=== PATIENT | male | born 1955 | race Two or more races ===

== ENCOUNTER 2022-12-08 20:28 | Emergency (ER) | payer MEDICAID ==
[~2022-12-08] VITALS: Ht 162.6 cm; Wt 77.0 kg
[2022-12-08] MEDS ORDERED: LOSA-381 PO (20:33)
[2022-12-08 20:34] VITALS: TEMP 98.7
[2022-12-08 22:27] LABS: BASOPHILS % (AUTO) 0.4 % (0.0-2.0); EOSINOPHILS % (AUTO) 1.1 % (1.0-6.0); HEMATOCRIT 52.4 % (41-53); HEMOGLOBIN 17.5 g/dL (13.5-17.5); LYMPHOCYTES # (AUTO) 1.8 K/uL (1.0-4.8); LYMPHOCYTES % (AUTO) 17.7 % (22.0-44.0); MEAN CORPUSCULAR HEMOGLOBIN 32.9 pg (26.0-34.0); MEAN CORPUSCULAR HGB CONC 33.5 G/dL (31.0-37.0); MEAN CORPUSCULAR VOLUME 98 fL (80-100); MONOCYTES # (AUTO) 0.8 K/uL (0.1-1.0); MONOCYTES % (AUTO) 7.5 % (2.0-9.0); NEUTROPHILS # (AUTO) 7.5 K/uL (1.8-7.7); NEUTROPHILS % (AUTO) 73.3 % (40.0-70.0); PLATELET COUNT (AUTO) 257 K/uL (150-450); RED BLOOD CELL COUNT(AUTO) 5.32 MIL/uL (4.50-5.90); RED CELL DISTRIBUTION WIDTH 13.4 % (11.5-14.5); WHITE BLOOD COUNT (AUTO) 10.2 K/uL (4.5-11.0)
[2022-12-08 22:35] LABS: ANION GAP 10 mmol/L (8-16); CALCIUM, TOTAL 9.4 mg/dL (8.8-10.5); CARBON DIOXIDE 28 mmol/L (22-29); CHLORIDE 97 mmol/L (98-107); CREATININE 1.05 mg/dL (0.60-1.30); GLOMERULAR FILTR. RATE CALC > 60 mL/min (>60); GLUCOSE,RANDOM 160 mg/dL (70-110); POTASSIUM 3.5 mmol/L (3.5-5.1); SODIUM SERUM 135 mmol/L (136-145); UREA NITROGEN, BLOOD 12 mg/dL (7-18)
[2022-12-08 22:42] LABS: ALANINE AMINOTRANSFERASE 37 U/L (12-78); ALBUMIN 3.5 g/dL (3.4-5.0); ALKALINE PHOSPHATASE 126 U/L (46-116); ASPARTATE AMINOTRANSFERASE 25 U/L (15-37); BILIRUBIN,TOTAL 0.2 mg/dL (0.1-1.0); LIPASE 45 U/L (16-77); TOTAL PROTEIN, SERUM 8.4 g/dL (6.4-8.2); TROPONIN I-HIGH SENSITIVITY 12 ng/L (<76)
[2022-12-08] MEDS ORDERED: POLY17PO PO (23:42)
[2022-12-08] MEDS ORDERED: NA P133E4 PR (23:43)
[2022-12-09] MEDS ORDERED: ACETAMINOPHEN 500 MG TABLET ONE (00:44)
[2022-12-09] MEDS ORDERED: ACETAMINOPHEN 500 MG TABLET PO ONE (00:45)
[2022-12-09 01:14] VITALS: BP 146/81; PULSE 98; RESP 22
== END 2022-12-09 00:21 | disposition home or self-care (01) ==
LOC: EMS 20:30
DX: K59.00 Constipation, unspecified (principal); I10 Essential (primary) hypertension; Z87.891 Personal history of nicotine dependence
CPT/HCPCS: 74022; 80053; 83690; 84484; 85025; 93005; 99285